=== PATIENT | male | born 1940 | race Caucasian/White ===

== ENCOUNTER 2021-04-12 17:33 | Emergency (ER) | payer MEDICARE, OTHER ==
--- NOTE | 2021-04-12 18:56 | ERPHSYRPT ---
- History of Present Illness Time Seen by Provider: 04/12/21 18:52 Source: patient Exam Limitations: no limitations Patient Subjective Stated Complaint: pt here for a fall on the ice today, he co pain to left side, he states he landed on left side, no loc Triage Nursing Assessment: pt arrived per wc,alert, face mask in place, pt grimacing with pain, has slight bruising to left rib area Physician History: pt trip over [place] and fell on ice onto left side and has tenderness left chest and guarding all of abdomen. No prodrome , no dizziness, no N/V. pain with breathing is present. some echymosis. Did not hit head and had no LOC. normal neuro exam. Occurred: this morning Reason for Fall: slipped, tripped Injuries/Pain Location: chest, abdomen Loss of Consciousness: no loss of consciousness Quality: sharpness Severity of Pain-Max: moderate Severity of Pain-Current: moderate Modifying Factors: Improves With: movement Associated Symptoms (Fall): chest pain Allergies/Adverse Reactions: latex Allergy (Verified 04/12/21 17:49) nickel Allergy (Verified 04/12/21 17:49) oxytetracycline [From Terramycin with Polymyxin B] Allergy (Verified 04/12/21 17:49) polymyxin B [From Terramycin with Polymyxin B] Allergy (Verified 04/12/21 17:49) Home Medications: Atorvastatin Calcium [Lipitor] 1 ea DAILY 04/12/21 [History] Clopidogrel Bisulfate 75 mg [PLAVIX 75 MG Tablet] 1 ea DAILY 04/12/21 [History] Cyclobenzaprine HCl 1 ea DAILY 04/12/21 [History] Dapagliflozin Propanediol [Farxiga] 1 ea DAILY 04/12/21 [History] Furosemide 20 mg [Lasix 20 mg] 20 mg PO DAILY 04/12/21 [History] Glipizide 5 mg [Glucotrol 5 MG] 1 ea DAILY 04/12/21 [History] Labetalol HCl 100 mg [Trandate 100 MG] 1 ea DAILY 04/12/21 [History] Pantoprazole 20 mg [Protonix 20MG Tablet] 20 mg PO DAILY 04/12/21 [History] Tamsulosin HCl 0.4 mg [Flomax 0.4 MG] 0.4 mg PO DAILY 04/12/21 [History] Hx Influenza Vaccination/Date Given: Yes Hx Pneumococcal Vaccination/Date Given: Yes Immunizations Up to Date: Yes Travel Risk - International Travel Have you traveled outside of the country in past 3 weeks: No - Coronavirus Screening Are you exhibiting any of the following symptoms?: No Close contact with a COVID-19 positive Pt in past 14-21 Days: No - Vaccine Status Have you recieved a Covid-19 vaccination: Yes 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 - Vaccination Dates Date of 2cond Vaccination (if applicable): 2020 - Review of Systems Constitutional: No Fever, No Chills Eyes: No Symptoms Ears, Nose, & Throat: No Symptoms Respiratory: No Cough, No Dyspnea Cardiac: Chest Pain (to palpation), No Edema, No Syncope Abdominal/Gastrointestinal: Abdominal Pain, No Nausea, No Vomiting, No Diarrhea Genitourinary Symptoms: No Dysuria Musculoskeletal: No Back Pain, No Neck Pain Skin: No Rash Neurological: No Dizziness, No Focal Weakness, No Sensory Changes Psychological: No Symptoms Endocrine: No Symptoms Hematologic/Lymphatic: No Symptoms Immunological/Allergic: No Symptoms All Other Systems: Reviewed and Negative - Past Medical History Pertinent Past Medical History: Yes Cardiac History: Coronary Artery Disease Endocrine Medical History: Diabetes Type II - Past Surgical History Past Surgical History: Yes Gastrointestinal: Cholecystectomy Musculoskeletal: Orthopedic Surgery Other Surgical History: back x5, carpal tunnel - Social History Smoking Status: Former smoker Exposure to second hand smoke: No Drug Use: none Patient Lives Alone: Yes - Nursing Vital Signs Nursing Vital Signs: Initial Vital Signs Temperature 97.4 F 04/12/21 17:34 Pulse Rate 86 04/12/21 17:34 Respiratory Rate 28 H 04/12/21 17:34 Blood Pressure 186/105 04/12/21 17:34 O2 Sat by Pulse Oximetry 97 04/12/21 17:34 Pain Scale Pain Intensity 6 - Howard Coma Score Best Eye Response (Jose): (4) open spontaneously Best Verbal Response (Howard): (5) oriented Best Motor Response (Jose): (6) obeys commands Howard Total: 15 - Physical Exam General Appearance: no apparent distress, alert Head Injury: no evidence of injury Eye Exam: PERRL/EOMI ENT Exam: airway nml Neck Exam: normal inspection, No tenderness Respiratory/Chest Exam: chest tenderness, normal breath sounds, No respiratory distress Cardiovascular Exam: normal heart sounds, regular rate/rhythm Gastrointestinal Exam: soft, No tenderness, No distention, No guarding, No ecchymosis Rectal Exam: deferred Back Exam: normal inspection, No vertebral tenderness Extremity Exam: normal inspection, normal range of motion, pelvis stable, No deformities Peripheral Pulses: carotid (R): 2+, carotid (L): 2+, femoral (R): 2+, femoral (L): 2+, dorsalis-pedis (R): 2+, dorsalis-pedis (L): 2+ Neurologic Exam: alert, oriented x 3, 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, 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, normal mood/affect, nml cerebellar function, sensation nml, No motor deficits Skin Exam: normal color, warm, dry SpO2 Interpretation: normal SpO2: 96 O2 Delivery: Room Air - Course Nursing assessment & vital signs reviewed: Yes EKG Interpreted by Me: Sinus Rhythm, Right Halls Deviation, Right Bundle Branch Block, Non-specific ST Changes, Other (APCs, prolonged SC ) - CT Exams Abdomen/Pelvis CT Interpretation: Tele-radiologist Report, No appendicitis, Other (diverticulosis, normal spleen) Chest CT Interpretation: Tele-radiologist Report, Other (left fx 7th rib, 8th rib fx left shoulder injury) Upper Extremity CT Interpretation: Tele-radiologist Report, Other (Left rotator cuff tear Fx ribs 6-7-8 left ) Ordered Tests: Active Orders 24 hr Category Date Time Status EKG-ER Only STAT Care 04/12/21 18:56 Active IV Insertion STAT Care 04/12/21 18:56 Active ABDOMEN AND PELVIS W/0 CONTRAS [CT] Stat Exams 04/12/21 18:57 Taken CHEST WITHOUT CONTRAST [CT] Stat Exams 04/12/21 18:58 Taken UPPER EXTREMITY W/O CONTRAST [CT] Stat Exams 04/12/21 20:09 Taken AMYLASE Stat Lab 04/12/21 19:34 Completed CBC W DIFF Stat Lab 04/12/21 19:34 Completed CMP Stat Lab 04/12/21 19:34 Completed LIPASE Stat Lab 04/12/21 19:34 Completed Lactic Acid Stat Lab 04/12/21 19:42 Completed TROPONIN Q3H Lab 04/12/21 19:34 Completed TROPONIN Q3H Lab 04/12/21 22:00 Ordered TROPONIN Q3H Lab 04/13/21 01:00 Ordered TROPONIN Q3H Lab 04/13/21 04:00 Ordered TROPONIN Q3H Lab 04/13/21 07:00 Ordered UA W/RFX UR CULTURE Stat Lab 04/12/21 19:34 Completed Medication Summary Generic Name Dose Route Start Last Admin Trade Name Remington PRN Reason Stop Dose Admin Sodium Chloride 1,000 mls @ 100 mls/hr 04/12/21 19:00 04/12/21 20:23 Sodium Chloride 0.9% 1000 Ml IV 05/12/21 18:59 100 mls/hr .Q10H VINAY Administration Discontinued Medications Generic Name Dose Route Start Last Admin Trade Name Freq PRN Reason Stop Dose Admin Diphenhydramine HCl 12 mg 04/12/21 19:35 04/12/21 20:38 Diphenhydramine Hcl 50 Mg/Ml Vial IV 04/12/21 19:36 12 mg STAT ONE Administration Diphenhydramine HCl Confirm 04/12/21 20:35 Diphenhydramine Hcl 50 Mg/Ml Vial Administered 04/12/21 20:36 Dose 50 mg .ROUTE .STK-MED ONE Morphine Sulfate 4 mg 04/12/21 19:35 04/12/21 20:38 Morphine Sulfate 4 Mg/Ml Injection IV 04/12/21 19:36 4 mg STAT ONE Administration Morphine Sulfate Confirm 04/12/21 20:35 Morphine Sulfate 4 Mg/Ml Injection Administered 04/12/21 20:36 Dose 4 mg .ROUTE .STK-MED ONE Ondansetron HCl 4 mg 04/12/21 19:36 04/12/21 20:39 Ondansetron Hcl 4 Mg/2 Ml Vial IV 04/12/21 19:37 4 mg STAT ONE Administration Ondansetron HCl Confirm 04/12/21 20:35 Ondansetron Hcl 4 Mg/2 Ml Vial Administered 04/12/21 20:36 Dose 4 mg .ROUTE .STK-MED ONE Lab/Rad Data: Laboratory Result Diagrams 04/12/21 19:34 04/12/21 19:34 Laboratory Results 04/12/21 04/12/21 04/12/21 Range/Units 19:42 19:34 19:34 WBC (4.0-10.5) K/mm3 RBC (4.1-5.6) M/mm3 Hgb (12.5-18.0) gm/dl Hct (42-50) % MCV (78-100) fl MCH (26-32) pg MCHC (32-36) g/dl RDW (11.5-14.0) % Plt Count (150-450) K/mm3 MPV (7.5-11.0) fl Gran % (36.0-66.0) % Eos # (Auto) (0-0.5) Absolute Lymphs (auto) (1.0-4.6) Absolute Monos (auto) (0.0-1.3) Lymphocytes % (24.0-44.0) % Monocytes % (0.0-12.0) % Eosinophils % (0.00-5.0) % Basophils % (0.0-0.4) % Absolute Granulocytes (1.4-6.9) Basophils # (0-0.4) Sodium 140 (137-145) mmol/L Potassium 4.8 (3.5-5.1) mmol/L Chloride 107 (98-107) mmol/L Carbon Dioxide 21 L (22-30) mmol/L Anion Gap 17.3 H (5-15) MEQ/L BUN 32 H (9-20) mg/dL Creatinine 1.65 H (0.66-1.25) mg/dL Estimated GFR 42.9 ML/MIN Glucose 244 H (74-106) mg/dL Lactic Acid 1.6 (0.4-2.0) Calcium 9.3 (8.4-10.2) mg/dL Total Bilirubin 1.50 H (0.2-1.3) mg/dL AST 20 (17-59) U/L ALT 18 (0-50) U/L Alkaline Phosphatase 122 (38-126) U/L Troponin I < 0.012 (0.000-0.034) ng/mL Serum Total Protein 7.2 (6.3-8.2) g/dL Albumin 4.8 (3.5-5.0) g/dL Amylase 47 (30-110) U/L Lipase 58 (23-300) U/L Urine Color (YELLOW) Urine Appearance (CLEAR) Urine pH (5-6) Ur Specific [place] (1.005-1.025) Urine Protein (Negative) Urine Ketones (NEGATIVE) Urine Blood (0-5) Bradly/ul Urine Nitrite (NEGATIVE) Urine Bilirubin (NEGATIVE) Urine Urobilinogen (0-1) mg/dL Ur Leukocyte Esterase (NEGATIVE) Urine WBC (Auto) (0-5) /HPF Urine RBC (Auto) (0-2) /HPF U Epithel Cells (Auto) (FEW) /HPF Urine Bacteria (Auto) (NEGATIVE) /HPF Urine Mucus (Auto) (NEGATIVE) /HPF Urine Culture Reflexed (NO) Urine Glucose (NEGATIVE) mg/dL 04/12/21 04/12/21 Range/Units 19:34 19:34 WBC 10.4 (4.0-10.5) K/mm3 RBC 3.98 L (4.1-5.6) M/mm3 Hgb 12.7 (12.5-18.0) gm/dl Hct 39.7 L (42-50) % MCV 99.7 (78-100) fl MCH 31.9 (26-32) pg MCHC 32.0 (32-36) g/dl RDW 13.1 (11.5-14.0) % Plt Count 151 (150-450) K/mm3 MPV 12.1 H (7.5-11.0) fl Gran % 80.6 H (36.0-66.0) % Eos # (Auto) 0.03 (0-0.5) Absolute Lymphs (auto) 0.79 L (1.0-4.6) Absolute Monos (auto) 1.19 (0.0-1.3) Lymphocytes % 7.6 L (24.0-44.0) % Monocytes % 11.4 (0.0-12.0) % Eosinophils % 0.3 (0.00-5.0) % Basophils % 0.1 (0.0-0.4) % Absolute Granulocytes 8.40 H (1.4-6.9) Basophils # 0.01 (0-0.4) Sodium (137-145) mmol/L Potassium (3.5-5.1) mmol/L Chloride (98-107) mmol/L Carbon Dioxide (22-30) mmol/L Anion Gap (5-15) MEQ/L BUN (9-20) mg/dL Creatinine (0.66-1.25) mg/dL Estimated GFR ML/MIN Glucose (74-106) mg/dL Lactic Acid (0.4-2.0) Calcium (8.4-10.2) mg/dL Total Bilirubin (0.2-1.3) mg/dL AST (17-59) U/L ALT (0-50) U/L Alkaline Phosphatase (38-126) U/L Troponin I (0.000-0.034) ng/mL Serum Total Protein (6.3-8.2) g/dL Albumin (3.5-5.0) g/dL Amylase (30-110) U/L Lipase (23-300) U/L Urine Color STRAW (YELLOW) Urine Appearance CLEAR (CLEAR) Urine pH 5.0 (5-6) Ur Specific [place] 1.016 (1.005-1.025) Urine Protein NEGATIVE (Negative) Urine Ketones NEGATIVE (NEGATIVE) Urine Blood NEGATIVE (0-5) Bradly/ul Urine Nitrite NEGATIVE (NEGATIVE) Urine Bilirubin NEGATIVE (NEGATIVE) Urine Urobilinogen NEGATIVE (0-1) mg/dL Ur Leukocyte Esterase NEGATIVE (NEGATIVE) Urine WBC (Auto) NONE SEEN (0-5) /HPF Urine RBC (Auto) NONE (0-2) /HPF U Epithel Cells (Auto) NONE (FEW) /HPF Urine Bacteria (Auto) NONE SEEN (NEGATIVE) /HPF Urine Mucus (Auto) SLIGHT (NEGATIVE) /HPF Urine Culture Reflexed NO (NO) Urine Glucose >=500 (NEGATIVE) mg/dL - Progress Progress: improved, re-examined Progress Note: 04/12/21 21:52 Discussed with pt and Dr. [facility] and all agree best to transfer and observe in trauma center for pulm contusion risk. Discussed with Dr.: Other (Dr. [facility] trauma) Counseled pt/family regarding: lab results, diagnosis, need for follow-up, rad results - Departure Departure Disposition: Transfer Clinical Impression: Fracture left ribs 6-7-8 , Complete rotator cuff tear of left shoulder Condition: Good Critical Care Time: No Referrals: GABINO CURRY MD [Primary Care Provider] - Follow up/PCP as directed
[2021-04-12] MEDS ORDERED: Sodium Chloride 0.9% 1000 ML 1,000 ML IV SCH (19:00)
[2021-04-12] MEDS ORDERED: BENADRYL 50 MG/ML IV ONE (19:35)
[2021-04-12] MEDS ORDERED: MORPHINE SULFATE 4 MG INJ IV ONE (19:35)
[2021-04-12] MEDS ORDERED: Zofran 4 MG/2 ML VIAL IV ONE (19:36)
[2021-04-12 19:39] LABS: Basophil (Absolute #) 0.01 (0-0.4); Eosinophil % 0.3 % (0.00-5.0); Eosinophil (Absolute #) 0.03 (0-0.5); Hematocrit 39.7 % (42-50); Hemoglobin 12.7 gm/dl (12.5-18.0); Lymphocyte (Absolute #) 0.79 (1.0-4.6); Lymphocytes % 7.6 % (24.0-44.0); Mean Cell Volume 99.7 fl (78-100); Mean Corpuscular Hemoglobin 31.9 pg (26-32); Mean Platelet Volume 12.1 fl (7.5-11.0); Monocyte (Absolute #) 1.19 (0.0-1.3); Monocytes % 11.4 % (0.0-12.0); Neutrophil % 80.6 % (36.0-66.0); Platelet Count 151 K/mm3 (150-450); Red Blood Count 3.98 M/mm3 (4.1-5.6); Red Cell Distribution Width 13.1 % (11.5-14.0); White Blood Count 10.4 K/mm3 (4.0-10.5)
[2021-04-12 19:52] LABS: ALBUMIN 4.8 g/dL (3.5-5.0); ANION GAP 17.3 MEQ/L (5-15); BILIRUBIN,TOTAL 1.5 mg/dL (0.2-1.3); Calcium 9.3 mg/dL (8.4-10.2); Creatinine 1 1.65 mg/dL (0.66-1.25); EST GLOMERULAR FILTRATION RATE 42.9 ML/MIN; Potassium 4.8 mmol/L (3.5-5.1); Total Protein 7.2 g/dL (6.3-8.2)
[2021-04-12 20:15] LABS: Appearance CLEAR (CLEAR); Bilirubin NEGATIVE (NEGATIVE); Blood NEGATIVE Ery/ul (0-5); Glucose >=500 mg/dL (NEGATIVE); Ketones NEGATIVE (NEGATIVE); Leukocyte Esterase NEGATIVE (NEGATIVE); Mucus SLIGHT /HPF (NEGATIVE); Nitrite NEGATIVE (NEGATIVE); Protein,Urine Dip NEGATIVE (Negative); Specific Gravity 1.016 (1.005-1.025); Urobilinogen NEGATIVE mg/dL (0-1)
[2021-04-12] MEDS ORDERED: Sodium Chloride 0.9% 1000 ML 1,000 ML ONE (20:22)
[2021-04-12 20:25] LABS: Bacteria NONE SEEN /HPF (NEGATIVE); WBC NONE SEEN /HPF (0-5)
[2021-04-12] MEDS ORDERED: MORPHINE SULFATE 4 MG INJ ONE (20:35)
[2021-04-12] MEDS ORDERED: Zofran 4 MG/2 ML VIAL ONE (20:35)
[2021-04-12] MEDS ORDERED: BENADRYL 50 MG/ML ONE (20:35)
[2021-04-12 22:07] VITALS: BP 127/73; PULSE 100; O2SAT 95
--- NOTE | 2021-04-13 08:58 | XRAY ---
Indication: Left-sided pain following fall. Multiple contiguous axial images obtained through the chest without contrast. Comparison: None Lungs demonstrates moderate bilateral dependent atelectasis and tiny left effusion. No suspicious pulmonary mass, infiltrate, or pneumothorax. Heart is not enlarged. Aorta is mildly arteriosclerotic without aneurysm. No pathologic mediastinal lymphadenopathy. Bony thorax demonstrates nondisplaced left 3/5-8 rib fractures. Elsewhere osteopenia, old left 10 rib fracture, moderate degenerative changes throughout the spine, and mild bilateral shoulder degenerative changes. CT abdomen/pelvis reported separately. Impression: 1. Left rib fractures with tiny hemothorax. No pneumothorax. 2. Dependent atelectasis, osteopenia and, and bony degenerative changes. Comment: Preliminary interpretation made by [facility]. No critical discrepancy.
--- NOTE | 2021-04-13 09:00 | XRAY ---
Indication: Left-sided pain following fall. Multiple contiguous axial images obtained through the abdomen and pelvis without contrast. Comparison: None CT chest reported separately. L3-L5 posterior spinal fusion hardware produces beam artifact. Noncontrasted stomach and bowel loops appear nonobstructed. Mild diffuse scattered colonic fecal debris throughout. Mild scattered colonic diverticulosis without diverticulitis. 4.6 cm right renal and 4.9 cm left renal cysts. Previous cholecystectomy. No free fluid/air. Remaining liver, pancreas, spleen, adrenal glands, kidneys, ureters, and bladder are unremarkable for noncontrast exam. Moderate scattered vascular calcifications without AAA. Osseous structures demonstrates osteopenia and moderate/advanced multilevel lumbar degenerative spondylosis. Impression: 1. Mild diffuse fecal stasis, colonic diverticulosis, bilateral renal cysts, and chronic bony findings. 2. Remaining CT abdomen/pelvis without contrast exam is negative. Comment: Preliminary interpretation made by [facility]. No critical discrepancy.
--- NOTE | 2021-04-13 09:04 | XRAY ---
Indication: Left shoulder pain following fall. Multiple contiguous axial images obtained through the left shoulder. Sagittal and coronal reformatted images obtained. Comparison: None CT chest/abdomen/pelvis including left rib fractures reported separately. Left shoulder demonstrates osteopenia and mild/moderate degenerative arthropathy. No acute fracture, suspicious bony lesions, or osseous destructive process. Humeral head is high riding commonly seen with rotator cuff tear. Visualized noncontrasted soft tissues are unremarkable. Impression: 1. Osteopenia and degenerative changes. 2. High riding humeral head. Rule out rotator cuff tear. Comment: Preliminary interpretation made by [facility]. No critical discrepancy.
== END 2021-04-12 22:38 | disposition short-term general hospital (02) ==
LOC: ED 17:33
DX: S22.42XA Multiple fractures of ribs, left side, initial encounter for closed fracture (principal); S46.012A Strain of muscle(s) and tendon(s) of the rotator cuff of left shoulder, initial encounter; W00.0XXA Fall on same level due to ice and snow, initial encounter; R10.9 Unspecified abdominal pain; I25.10 Atherosclerotic heart disease of native coronary artery without angina pectoris; E11.9 Type 2 diabetes mellitus without complications; Z79.84 Long term (current) use of oral hypoglycemic drugs; Z79.01 Long term (current) use of anticoagulants; Z79.899 Other long term (current) drug therapy
CPT/HCPCS: 36000; 36415; 71250; 73200; 74176; 80053; 81001; 82150; 83605; 83690; 84484; 85025; 93005; 96374; 96375; 99285; J1200; J2270; J2405